=== PATIENT | male | born 1960 | race Caucasian/White ===

== ENCOUNTER 2017-08-14 11:35 | Emergency (ER) | payer MEDICAID ==
--- NOTE | 2017-08-14 12:25 | Emergency Department Record ---
History of Present Illness - General Chief complaint: ENT Stated complaint: SORE THROAT,COUGH,CHEST CONGESTION,FEVER Time Seen by Provider: 08/14/17 12:18 Source: Patient Mode of Arrival: Ambulatory Limitations: No limitations - History of Present Illness Initial comments: 57 yo male presents to ED for evaluation of continued cough and wheezing symptoms despite recent treatment with Amoxicillin and Prednisone for his symptoms. Patient reports a history of asthma, denies nausea, vomiting, or abdominal pain symptoms. Patient denies health problems otherwise. Onset/Timin -: Days(s) Location: Throat Consistency: Intermittent Improves with: None Worsens with: None Associated Symptoms: Cough, Fever, Sore throat - Related Data Home Medications Medication Instructions Recorded Confirmed Last Taken Albuterol Sulfate [Proair Hfa] 1 - 2 puff IH .EVERY 4-6 HOURS PRN 08/14/1708/1408/14/17 Amoxicillin [Amoxil] 875 mg PO BID 08/14/17 08/14/17 08/14/17 Budesonide/Formoterol Fumarate 10.2 gm IH BID 08/14/17 08/14/17 08/14/17 [Symbicort 80-4.5 Mcg Inhaler] Duloxetine HCl [Cymbalta] 30 mg PO DAILY 08/14/17 08/14/17 08/14/17 Modafinil [Provigil] 200 mg PO DAILY 08/14/17 08/14/17 08/14/17 Prednisone [Prednisone 10Mg] 10 mg PO DAILY 08/14/17 08/14/17 08/14/17 Ranitidine HCl 150 mg PO DAILY 08/14/17 08/14/17 08/14/17 Trazodone HCl 100 mg PO QHS 08/14/17 08/14/17 08/14/17 Previous Rx's Medication Instructions Recorded Amoxicillin/Potassium Clav 1 tab PO BID #20 tab 08/14/17 [Augmentin 875-125 Tablet] Promethazine HCl/Codeine 5 - 10 ml PO .AT BEDTIME PRN #118 08/14/17 [Phenergan W/Codeine] ml Allergies Allergy/AdvReac Type Severity Reaction Status Date / Time No Known Drug Allergies Allergy Verified 08/14/17 11:55 Travel Screening - Travel/Exposure Within Last 30 Days Have you traveled within the last 30 days?: No Review of Systems Constitutional: Denies: Chills, Fever, Malaise, Night sweats Eyes: Denies: Eye discharge, Eye pain ENT: Reports: Congestion. Denies: Ear pain, Epistaxis Respiratory: Reports: Cough, Dyspnea, Wheezes Cardiovascular: Denies: Chest pain, Edema Endocrine: Denies: Fatigue, Heat or cold intolerance Gastrointestinal: Denies: Abdominal pain, Nausea Genitourinary: Denies: Incontinence, Retention Musculoskeletal: Denies: Arthralgia, Back pain, Gout, Joint swelling Skin: Denies: Bruising, Change in color Neurological: Denies: Abnormal gait, Confusion, Headache, Seizure Psychiatric: Denies: Anxiety Hematological/Lymphatic: Denies: Anemia, Blood Clots Past Medical History - SOCIAL HISTORY Smoking Status: Never smoker Alcohol Use: None Drug Use: None - RESPIRATORY Hx Respiratory Disorders: Yes Hx COPD: Yes - CARDIOVASCULAR Hx Cardio Disorders: Yes Hx Hypertension: Yes - NEURO Hx Neuro Disorders: No - GI Hx GI Disorders: No - Hx Genitourinary Disorders: No - ENDOCRINE Hx Endocrine Disorders: No - MUSCULOSKELETAL Hx Musculoskeletal Disorders: No - PSYCH Hx Psych Problems: No - HEMATOLOGY/ONCOLOGY Hx Hematology/Oncology Disorders: No Family Medical History Any Significant Family History?: No Physical Exam - General General Appearance: Alert, Oriented x3, Cooperative, No acute distress Limitations: No limitations - Head Head exam: Atraumatic, Normocephalic, Normal inspection Head exam detail: negative: Abrasion, Contusion, Diaz's sign, General tenderness, Hematoma, Laceration - Eye Eye exam: Normal appearance. negative: Conjunctival injection, Periorbital swelling, Periorbital tenderness, Scleral icterus - ENT Ear exam: negative: Auricular hematoma, Auricular trauma Nasal Exam: negative: Active bleeding, Discharge, Dried blood, Foreign body Mouth exam: negative: Drooling, Laceration, Muffled voice, Tongue elevation - Neck Neck exam: Normal inspection. negative: Meningismus, Tenderness - Respiratory Respiratory exam: Decreased breath sounds, Wheezes, Other (Coarse wheezes bases bilaterally). negative: Respiratory distress, Rhonchi - Cardiovascular Cardiovascular Exam: Regular rate, Normal rhythm, Normal heart sounds - GI/Abdominal GI/Abdominal exam: Soft. negative: Rebound, Rigid, Tenderness - Rectal Rectal exam: Deferred - exam: Deferred - Extremities Extremities exam: Normal inspection. negative: Pedal edema, Tenderness - Back Back exam: Denies: CVA tenderness (R), CVA tenderness (L) - Neurological Neurological exam: Alert, Normal gait, Oriented X3 - Psychiatric Psychiatric exam: Normal affect, Normal mood - Skin Skin exam: Normal color. negative: Abrasion Type of lesion: negative: abrasion Course Vital Signs 08/14/17 11:50 Temperature 98.2 F Pulse Rate 79 Respiratory 18 Rate Blood Pressure 139/76 Pulse Ox 96 - Reevaluation(s) Reevaluation #1: 08/14/17 13:06 influenza negative CXR: RML/RLL infiltrates present suggesting developing pneumonia Reevaluation #2: 08/14/17 13:12 Patient was updated on all results, will initiate treatment with phenergan with codeine and Augmentin for 10 days. Patient is otherwise well appearing and stable for discharge at this time. Disposition Disposition: Discharge Clinical Impression: CAP (community acquired pneumonia) Qualifiers: Laterality: right Lung location: middle lobe of lung Qualified Code(s): J18.1 - Lobar pneumonia, unspecified organism Disposition: Home, Self-Care Condition: (2) Stable Instructions: Community Acquired Pneumonia (ED) Additional Instructions: Return to ED if your symptoms worsen or if you have any concerns. Augmentin and phenergen with codeine as directed. Follow-up with your family doctor in 3-5 days as directed. Prescriptions: Amoxicillin/Potassium Clav [Augmentin 875-125 Tablet] 1 tab PO BID #20 tab Promethazine HCl/Codeine [Phenergan W/Codeine] 5 - 10 ml PO .AT BEDTIME PRN # 118 ml PRN Reason: Cough Forms: Patient Portal Access Time of Disposition: 13:08 Quality - Quality Measures Quality Measures: N/A - Blood Pressure Screening Does Patient Have Any of the Following: No Blood Pressure Classification: Pre-Hypertensive BP Reading Systolic Measurement: 139 Diastolic Measurement: 76 Screening for High Blood Pressure: < Pre-Hypertensive BP, F/U Documented > [ [id number]] Pre-Hypertensive Follow-up Interventions: Referral to alternative/primary care provider.
[2017-08-14 12:45] LABS: INFLUENZA A NEGATIVE (NEGATIVE); INFLUENZA B NEGATIVE (NEGATIVE)
--- NOTE | 2017-08-16 00:38 | RADIOLOGY REPORT ---
EXAM: CHEST 2 VIEWS HISTORY: COUGH AND FEVER. TECHNIQUE: PA and lateral upright views of the chest were obtained. COMPARISON: None. FINDINGS: The heart, mediastinum, and pulmonary vasculature are normal. There are mild patchy infiltrates within the right mid and lower lung miranda consistent with developing pneumonia. The remaining lung miranda are clear. There is no pneumothorax or effusion. The bones appear intact. IMPRESSION: PATCHY INFILTRATES WITHIN THE RIGHT MID AND LOWER LUNG MIRANDA CONSISTENT WITH DEVELOPING PNEUMONIA. JOB NUMBER: [id number] MTDD
== END 2017-08-14 13:19 | disposition home or self-care (01) ==
LOC: ER 11:35
DX: J18.1 Lobar pneumonia, unspecified organism (principal); J02.9 Acute pharyngitis, unspecified; I10 Essential (primary) hypertension
CPT/HCPCS: 71020; 87400; 99283; 99284